=== PATIENT | female | born 2000 | race Caucasian/White ===

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

== ENCOUNTER → 2024-11-19 | Outpatient (REF) | payer OTHER | LOC: M SMT 15:15 → M SFHCWAGY 15:15 | PROVIDERS: ATTEND Nurse Practitioner Family | DX: Z12.4 Encounter for screening for malignant neoplasm of cervix (principal) ==